=== PATIENT | female | born 1955 | race Caucasian/White ===

== ENCOUNTER 2018-01-03 15:17 | Emergency (ER) | payer OTHER, SELFPAY ==
[2018-01-03 15:18] VITALS: BP 155/62; PULSE 115; RESP 18; TEMP 37.4; O2SAT 93; BMI 41.5
--- NOTE | 2018-01-03 15:32 | CT_ITS ---
STUDY: CT ABDOMEN AND PELVIS WITH CONTRAST REASON FOR EXAM: Female, 62 years old. Left lower quadrant pain and fever RADIATION DOSAGE (If Supplied By Facility): CTDIvol = ( 17.03 ) mGy, DLP = ( 1284.55 ) mGycm TECHNIQUE: Transaxial images were obtained from the dome of the diaphragm to the symphysis pubis without oral contrast. 100mL ml of Isovue 300 contrast was administered. Sagittal and coronal images were reconstructed. Individualized dose optimization techniques were used for this CT. COMPARISON: None. FINDINGS: The visualized lung bases are unremarkable. The visualized portions of the heart are within normal limits. Normal liver. There are surgical clips in the gallbladder fossa consistent with a prior cholecystectomy. Normal spleen. Normal pancreas. Normal bilateral adrenal glands. Normal right kidney. Normal left kidney. Normal visualized stomach. Normal small intestine. Normal colon. There is non-visualization of the appendix. Oral contrast noted throughout the stomach and small bowel. Increased stool. Normal abdominal aorta. Normal inferior vena cava. Normal retroperitoneum. Normal urinary bladder. Normal visualized uterus. There is a small umbilical hernia containing fat. Multilevel spinal stenosis. CT/Abdomen/Pelvis WITH Contrast IMPRESSION: Increased stool otherwise no acute disease Electronically Signed: David Ventura MD at 17:55 EDT , Service support ,
--- NOTE | 2018-01-03 15:34 | ED.VISSUMM ---
- ER Visit Summary Date of Service: 01/03/18 Chief Complaint: Abdominal pain History of Present Illness: The patient is a 62 F presenting with abdominal pain, fever, not feeling well. Patient states she woke up this morning and felt nauseated and had subjective fever. She felt that she may be getting a kidney infection. She went to urgent care. She was told that she had glucose in her urine but no infection. She was advised to come to the ED for further evaluation. She denies vomiting or diarrhea. Denies dysuria or frequency. Denies other complaints. Physical Examination: Vitals are stable. Patient is afebrile. Alert no acute distress. HEENT exam is unremarkable. Neck is supple. Lungs are clear and equal bilaterally. Heart is regular and tachycardic Abdomen is soft left lower quadrant tenderness with no rebound or guarding Extremities are unremarkable. Skin is warm and dry. Remainder of exam is unremarkable. Emergency Department Course and Treatment: Patient given IV fluids, Zofran. CBC shows a white count of 14.0. Chemistries unremarkable other than glucose 147, creatinine 1.51. Lipase is 242. CT abdomen pelvis shows increased stool otherwise no acute disease. Urinalysis shows 25-50 white blood cells, positive leukocytes and nitrites. Patient is given Tylenol and Macrobid. Urine culture was sent. She is feeling improved and is requesting to go home. She given prescription for Macrobid. Advised to follow-up with her primary care physician. Advised return to ED for any worsening complaints. Disposition: Discharged home Impression: Febrile illness, UTI This note was generated with [employer] dictation software. It may contain incorrect words, spelling, and punctuation that were not noted in review of the chart prior to signing ED Disposition - Plan for ED Patient: Chief Complaint: Fever Referrals: Pauly Summers [Primary Care Provider] -
--- NOTE | 2018-01-03 15:37 | ED.DCSUM_ITS ---
- ER Visit Summary Date of Service: 01/03/18 Chief Complaint: Abdominal pain History of Present Illness: The patient is a 62 F presenting with abdominal pain , fever, not feeling well. Patient states she woke up this morning and felt nauseated and had subjective fever. She felt that she may be getting a kidney infection. She went to urgent care. She was told that she had glucose in her urine but no infection. She was advised to come to the ED for further evaluation. She denies vomiting or diarrhea. Denies dysuria or frequency. Denies other complaints. Physical Examination: Vitals are stable. Patient is afebrile. Alert no acute distress. HEENT exam is unremarkable. Neck is supple. Lungs are clear and equal bilaterally. Heart is regular and tachycardic Abdomen is soft left lower quadrant tenderness with no rebound or guarding Extremities are unremarkable. Skin is warm and dry. Remainder of exam is unremarkable. Emergency Department Course and Treatment: Patient given IV fluids, Zofran. CBC shows a white count of 14.0. Chemistries unremarkable other than glucose 147, creatinine 1.51. Lipase is 242. CT abdomen pelvis shows increased stool otherwise no acute disease. Urinalysis shows 25-50 white blood cells, positive leukocytes and nitrites. Patient is given Tylenol and Macrobid. Urine culture was sent. She is feeling improved and is requesting to go home. She given prescription for Macrobid. Advised to follow-up with her primary care physician. Advised return to ED for any worsening complaints. Disposition: Discharged home Impression: Febrile illness, UTI This note was generated with [employer] dictation software. It may contain incorrect words, spelling, and punctuation that were not noted in review of the chart prior to signing ED Disposition - Plan for ED Patient: Chief Complaint: Fever Referrals: Pauly Summers [Primary Care Provider] -
[2018-01-03] MEDS: Ondansetron 4 MG/2 ML Vial IV (15:51)
[2018-01-03] MEDS: 0.9% Normal Saline 1,000 ML 1000 ML IV (15:51)
[2018-01-03 15:55] LABS: Absolute Lymphocyte Count 0.75 X10^3/ul (0.83-4.51); Absolute Neutrophil Count 12.5 X10^3/uL (2.0-7.7); Basophil# 0.03 X10^3/uL; Basophil% 0.2 % (0-1); Eosinophil# 0.02 X10^3/uL; Eosinophils% 0.1 % (0-5); Hemoglobin 13.8 g/dl (12.0-15.0); Lymphocyte # 0.75 X10^3/ul (4.0); Lymphocyte % 5.4 % (19-41); Mean Corp Hgb Conc 32.1 g/gl (32-36); Mean Corpuscular Volume 87.4 fL (81-99); Mean Platelet Vol. 8.9 fl (6.2-12.0); Monocyte# 0.67 X10^3/uL; Monocyte% 4.8 % (0-10); Neutrophil # 12.47 X10^3/uL (2.7-7.7); Neutrophil % 89.4 % (47-70); Platelet Count 356 K/mm3 (150-450); RBC Distribution Width CV 14.1 % (11.6-14.6); RBC Distribution Width SD 45.1 fl (35.1-43.9); Red Blood Count 4.92 M/mm3 (4.2-5.4)
[2018-01-03 15:56] LABS: POSITIVE COUNT NO; POSITIVE DIFFERENTIAL NO; POSITIVE MORPHOLOGY NO
[2018-01-03 16:08] LABS: AST(SGOT) 15 U/L (15-37); Alanine Aminotransfer ALT/SGPT 26 U/L (13-56); Albumin, Serum 3.8 g/dL (3.2-5.0); Alkaline Phosphatase 88 U/L (45-117); Anion Gap 7 (5-15); BUN 18 mg/dL (7-18); BUN/Creat Ratio 11.9 RATIO (10-20); Bilirubin, Direct 0.11 mg/dL (0.00-0.30); Calcium,Total 10.3 mg/dL (8.5-10.1); Chloride 102 mmol/L (98-107); Creatinine, Serum 1.51 mg/dL (0.55-1.02); EST Glomerular Filtration Rate 37 mL/min (>60); Est Glom Filt Rate - Afr Amer 45 mL/min (>60); Estimated Creatinine Clearance 34.31 ml/min; Globulin 4.9 g/dL (2.2-4.2); Glucose 147 mg/dL (74-106); Lipase 242 U/L (73-393); Protein, Total 8.7 g/dL (6.4-8.2); Sodium Level 136 mmol/L (136-145)
[2018-01-03 17:38] LABS: Mucous, Urine 0 SEEN /hpf (<or=2+); Red Blood Cells-Urine 0 SEEN /hpf (0-5)
[2018-01-03 17:42] VITALS: BP 119/51; PULSE 94; RESP 16; TEMP 37.5; O2SAT 99
[2018-01-03 17:59] LABS: Color, Urine Yellow (Yellow); Glucose, Dipstick 1000 mg/dl (Normal); Ketone-Dipstick Negative (Negative); Leukocyte Esterase-Dipstick 500 /ul (Negative); Nitrite-Dipstick Positive (Negative); Occult Blood-Urine 10 /ul (Negative); Protein-Dipstick 15 mg/dl (Negative); Urine Bilirubin Dipstick Negative (Negative); Urine Clarity Sl. Cloudy (Clear); Urine Urobilinogen Normal (Normal)
[2018-01-03 18:40] LABS: Bacteria 1+ /hpf (None Seen); Squamous Epithelial Cells - UA 0-5 SEEN /hpf (5-10); White Blood Cells 25-50 SEEN /hpf (0-5)
--- NOTE | 2018-01-03 19:47 | ED.DEP ---
ED Disposition - Plan for ED Patient: Chief Complaint: Fever Instructions: ED UTI Cystitis Female Prescriptions: Nitrofurantoin Macrocrystals [Macrobid] 100 mg PO Q12 #14 capsule Referrals: Pauly Summers [Primary Care Provider] -
[2018-01-03] MEDS: Nitrofurantoin Macrocrystals 100 MG Capsule PO (19:49)
[2018-01-03] MEDS: Acetaminophen 500 MG Tablet 1000 MG PO (19:49)
[2018-01-03 19:52] VITALS: BP 124/77; PULSE 95; RESP 20; O2SAT 95
== END 2018-01-03 19:53 | disposition home or self-care (01) ==
PROVIDERS: Emergency Provider Emergency Medicine; Family Provider Internal Medicine; PCP Internal Medicine
DX: N39.0 Urinary tract infection, site not specified (principal); R50.9 Fever, unspecified; I12.9 Hypertensive chronic kidney disease with stage 1 through stage 4 chronic kidney disease, or unspecified chronic kidney disease; E11.22 Type 2 diabetes mellitus with diabetic chronic kidney disease; N18.9 Chronic kidney disease, unspecified
CPT/HCPCS: 74177; 80048; 80076; 81001; 83690; 85025; 96361; 96374; 99284; J7030; Q9967; A4216; J2405